=== PATIENT | female | born 1950 | race Caucasian/White ===

== ENCOUNTER 2022-07-25 08:01 | Emergency (ER) | payer MEDICARE, OTHER, SELFPAY ==
--- NOTE | ~2022-07-25 | XR_ITS ---
EXAMINATION: XR LUMBOSACRAL SPINE CLINICAL INFORMATION: Acute low back pain COMPARISON: None available. TECHNIQUE: Three views of the lumbosacral spine. FINDINGS: There is maintained lumbar lordosis the vertebral heights and alignment is normal minimal loss of L5-S1 L2-L3 and L1-L2 disc heights is noted. There is mild ventral spondylosis. No aggressive lytic or sclerotic process. SI joints are normal. XR/XR lumbar spine 2-3V IMPRESSION: Mild degenerative disc changes L1-L2, L2-L3 and L5-S1 disc levels with mild ventral spondylosis.
[2022-07-25 08:09] VITALS: BP 127/57; BP 177/88; PULSE 69; PULSE 74; RESP 20; TEMP 36.9; O2SAT 92; O2SAT 94; BMI 75.9
--- NOTE | 2022-07-25 08:20 | ED.GENADULT ---
HPI - General Adult General Chief complaint: General Medical Stated complaint: R side pain Time Seen by Provider: 07/25/22 08:03 Source: patient and EMS Mode of arrival: EMS Limitations: no limitations History of Present Illness HPI narrative: 71-year-old female with generalized immobility issues, obesity, chronic lymphedema presents with right leg pain. There is no trauma or fall. The pain is severe. The pain is intermittent worse with movement and ambulation. Pain starts in the right buttock and radiates down her leg. The pain can be sharp, burning, crampy in nature. She has chronic bilateral lower extremity paresthesias which is unchanged. She denies any focal weakness. She reports that she needs bilateral knee replacement. She denies any loss of bowel or bladder control. She denies any saddle paresthesias or low back pain. Treatment included Aleve [id number], 750 mg last night. It did help slightly. Related Data Home Medications Medication Instructions Recorded Confirmed atenolol 50 mg tablet 50 mg PO DAILY 07/25/22 07/25/22 celecoxib 200 mg capsule 200 mg PO BID PRN Pain 07/25/22 07/25/22 spironolactone 25 2 tab PO DAILY 07/25/22 07/25/22 mg-hydrochlorothiazide 25 mg tablet Allergies Allergy/AdvReac Type Severity Reaction Status Date / Time No Known Allergies Allergy Verified 07/25/22 08:21 Review of Systems Review of Systems: GEN: Well developed, no acute distress, alert, oriented HEENT: Normocephalic, atraumatic, normal external ears, nose appears normal, no oropharyngeal edema or exudates Eyes: Normal to appearance Neck: Supple, no lymphadenopathy Respiratory: Talks in complete sentences, no respiratory distress, clear to auscultation bilaterally Cardiovascular: Regular rate and rhythm, no murmurs rubs or gallops Abdomen: Soft, nontender, nondistended, no guarding, no rebound Back: No CVA tenderness Extremities: No clubbing cyanosis or chronic 4+ lymphedema, positive straight leg raise on the right Neurologic: No focal neurologic deficits, cranial nerves 2-12 intact, strength is 5/5 bilaterally, sensation intact bilaterally as well as proximal to distal Skin: No rash PMFSH Social History Social History Smoked in Last 30 Days: No Use of substances other than those prescribed or required for medical reasons: No Advance Directives: Yes Advance Directives on File: No Physical Exam ED Vital Signs: Vital Signs - 24 hr 07/25/22 08:09 07/25/22 10:12 07/25/22 15:40 Temperature 98.4 F 98.4 F 98.4 F Pulse Rate 69 59 59 Respiratory Rate 20 18 Blood Pressure 127/57 L 123/75 134/77 Pulse Oximetry 92 96 92 Oxygen Delivery Method Room Air Room Air Room Air BMI result Body Mass Index 75.9 Course Course Course Narrative: 71-year-old female presents with right lower leg pain. Pain started a few days ago. The pain is severe and affecting her ability to ambulate. She denies any falls or trauma. Will order an x-ray to rule out compression fracture although I doubt this diagnosis. Will provide patient with analgesia and re-evaluate patient. Suspect lumbar radiculopathy or neuropathic pain. Reevaluation(s) Reevaluation #1: Patient required full assist to ambulate. Will order Case Management, Physical therapy, some basic labs and a COVID test. Patient is aware of the recommendation for short-term rehabilitation. Time: 11:32 Reevaluation #2: patient placed in physician obs pending CM/PT eval. Oncoming provider to assume care at 4pm Time: 16:00 Medications Administered Discontinued Medications Generic Name Dose Route Start Last Admin Trade Name Beena PRN Reason Stop Dose Admin Acetaminophen 975 mg 07/25/22 08:13 07/25/22 08:41 Acetaminophen 325 Mg Tablet PO 07/25/22 08:14 975 mg ONCE ONE Administration Cyclobenzaprine HCl 10 mg 07/25/22 08:13 07/25/22 08:41 Cyclobenzaprine Hcl 10 Mg Tablet PO 07/25/22 08:14 10 mg ONCE ONE Administration Dexamethasone 10 mg 07/25/22 08:13 07/25/22 08:41 Dexamethasone 2 Mg Tablet PO 07/25/22 08:14 10 mg ONCE ONE Administration Gabapentin 300 mg 07/25/22 08:13 07/25/22 08:42 Gabapentin 300 Mg Capsule PO 07/25/22 08:14 300 mg ONCE ONE Administration Ketorolac Tromethamine 30 mg 07/25/22 08:13 07/25/22 08:40 Ketorolac Tromethamine 30 Mg/Ml Vial IM 07/25/22 08:14 30 mg ONCE ONE Administration Medical Decision Making Medical Decision Making MDM Narrative: 71-year-old female presents with right lower extremity pain. Pain starts in the buttock and radiates distally. This appears to be more radicular in nature. She has no low back pain. Differential diagnosis could include spinal stenosis, disc disease, piriformis syndrome, lumbar radiculopathy. There is no fall or trauma to suspect compression fracture although this would be a possible diagnosis. Will obtain an x-ray of the lumbar spine to rule out compression fracture. There is no indication for emergent laboratory testing. Doubt epidural abscesses she has no risk factors, no fever, no midline tenderness. Doubt acute cauda equina syndrome. She her symptoms are unilateral, no saddle paresthesias, no loss of bowel or bladder control there is no indication for MRI at this time. Will treat patient with Toradol, Tylenol, cyclobenzaprine, Decadron and gabapentin. Will re-evaluate the patient. Differential Diagnosis Differential Diagnoses: The differential diagnosis associated with the presentation includes (See above) Lumbar radiculopathy Admission/Observation Consideration of admission/observation: Escalation of care including admission/observation considered (If patient is unable to ambulate) Lab Data 07/25/22 12:33 07/25/22 12:33 Labs: Lab Results 07/25/22 07/25/22 07/25/22 Range/Units 12:33 12:33 12:33 WBC 10.2 (4.8-10.8) X10*3/uL RBC 4.58 (4.20-5.50) X10*6/uL Hgb 13.3 (12.0-16.0) g/dl Hct 42.1 (37.0-47.0) % MCV 91.9 (80.0-98.0) fL MCH 29.0 (27.0-33.0) pg MCHC 31.6 (31.0-35.0) g/dl RDW 15.0 (11.0-16.0) % Plt Count 228 (160-400) X10*3/uL MPV 9.8 (9.4-12.3) fL Immature Gran % (Auto) 0.5 H (0.0-0.4) % Neut % (Auto) 87.6 H (45-73) % Lymph % (Auto) 9.5 L (20-40) % [place] % (Auto) 1.9 L (2-11) % Eos % (Auto) 0.2 (0-4) % Baso % (Auto) 0.3 (0-2) % Lymph # (Auto) 1.0 L (1.2-4.9) X10*3/uL [place] # (Auto) 0.2 (0.1-1.2) X10*3/uL Eos # (Auto) 0.0 (0.0-0.4) X10*3/uL Baso # (Auto) 0.0 (0.0-0.2) X10*3/uL Abs Immat Gran (auto) 0.05 H (0.00-0.03) X10*3/uL Absolute Neuts (auto) 8.9 H (2.0-8.3) x10*3/uL Absolute Nucleated RBC 0.000 (0.0-0.012) X10*3/uL Nucleated RBC % (auto) 0.0 (0.0-0.2) /100WBC Sodium 141 (135-145) mmol/L Potassium 4.2 (3.3-5.1) mmol/L Chloride 101 (96-108) mmol/L Carbon Dioxide 33 H (22-29) mmol/L Anion Gap 11 L (12-20) BUN 16 (9-16) mg/dL Creatinine 0.80 (0.5-1.4) mg/dL Estim Creat Clear Calc 122.5 Estimated GFR > 60 Random Glucose 125 H (60-115) mg/dL Calcium 9.3 (8.4-10.2) mg/dL Total Bilirubin 0.6 (0.0-1.0) mg/dL AST 13 (5-31) U/L ALT 14 (0-31) U/L Alkaline Phosphatase 100 (39-117) U/L Total Protein 7.6 (6.5-8.0) g/dL Albumin 3.6 (3.5-5.0) g/dL COVID-19 (YUNIER) Negative (Negative) COVID-19 Clin Com See Note Independent Interpretation I performed an independent interpretation of an: Plain X-Ray (L-spine) Radiology Impression Discussion of test interpretation with radiology: I have reviewed the radiologist's reading. ( XR/XR lumbar spine 2-3V IMPRESSION: Mild degenerative disc changes L1-L2, L2-L3 and L5-S1 disc levels with mild ventral spondylosis. Dictated By:Dustin Gunderson MDSigned By:<Electronically signed by Dustin Gunderson MD in [place]>07/25/22 3124) Independent Historian Clinical information obtained from an independent historian. History obtained from or confirmed by: EMS Tests considered The following testing was considered but not selected: CT lumbar spine, MR lumbar spine Prescription Management I considered prescription management with: Pain Medication Chronic Conditions Patient?s care impacted by: Hypertension Discharge Plan Discharge Clinical Impression: Acute lumbar radiculopathy Patient Disposition: Still a Patient Prescriptions: No Action spironolacton-hydrochlorothiaz 25-25 mg tablet 2 tab PO DAILY atenolol 50 mg tablet 50 mg PO DAILY celecoxib 200 mg capsule 200 mg PO BID PRN (Reason: Pain)
--- NOTE | 2022-07-25 08:31 | PC.NURSE ---
pt reports 10/10 nerve pain from r buttock radiates down to right leg, started 1wk ago. hx of same in the past. pt gets around via walker and scooter. lymphedema present bilat foot. on hydrochlorothiazide. no other complaints. at bedside and validates information.
[2022-07-25] MEDS: Ketorolac Tromethamine 30 MG/ML VIAL IM (08:40)
[2022-07-25] MEDS: Cyclobenzaprine HCl 10 MG TABLET PO (08:41)
[2022-07-25] MEDS: Acetaminophen 325 MG TABLET 975 MG PO (08:41)
[2022-07-25] MEDS: dexAMETHasone 2 MG TABLET 10 MG PO (08:41)
[2022-07-25] MEDS: Gabapentin 300 MG CAPSULE PO (08:42)
[2022-07-25 10:12] VITALS: BP 123/75; PULSE 59; RESP 18; TEMP 36.9; O2SAT 96
--- NOTE | 2022-07-25 11:39 | PC.NURSE ---
this rn with assistance of 2 ed techs attempted to ambulate pt with walker. pt able to stand up from bed but was not able to take any steps. difficult getting pt back in bed. at bedside. Dr. Bond aware.
[2022-07-25 12:38] LABS: MANUAL DIFF FLAG NO
[2022-07-25 12:39] LABS: Basophils Percent Auto 0.3 % (0-2); Eosinophils Percent Auto 0.2 % (0-4); Hematocrit 42.1 % (37.0-47.0); Hemoglobin 13.3 g/dl (12.0-16.0); Imm Gran Abs Auto 0.05 X10*3/uL (0.00-0.03); Imm Gran Pct Auto 0.5 % (0.0-0.4); Lymphocytes Percent Auto 9.5 % (20-40); Mean Corpuscular HGB Conc 31.6 g/dl (31.0-35.0); Mean Corpuscular Volume 91.9 fL (80.0-98.0); Mean Platelet Volume 9.8 fL (9.4-12.3); Monocytes Absolute Auto 0.2 X10*3/uL (0.1-1.2); Monocytes Percent Auto 1.9 % (2-11); Neutrophils Absolute Auto 8.9 x10*3/uL (2.0-8.3); Neutrophils Percent Auto 87.6 % (45-73); Platelet Count 228 X10*3/uL (160-400); Red Blood Count 4.58 X10*6/uL (4.20-5.50); White Blood Count 10.2 X10*3/uL (4.8-10.8)
[2022-07-25 12:52] LABS: Alanine Aminotransferase 14 U/L (0-31); Albumin Level 3.6 g/dL (3.5-5.0); Alkaline Phosphatase 100 U/L (39-117); Anion Gap 11 (12-20); Aspartate Amino Transferase 13 U/L (5-31); Bilirubin Total 0.6 mg/dL (0.0-1.0); Blood Urea Nitrogen 16 mg/dL (9-16); COVID-19 Test Negative (Negative); Calcium 9.3 mg/dL (8.4-10.2); Carbon Dioxide 33 mmol/L (22-29); Chloride 101 mmol/L (96-108); Creatinine Clr Calc Pharmacy 122.5; Estimated Glomerular Filt Rate > 60; Glucose Random 125 mg/dL (60-115); IDNOW Serial# BCCEAD1C; Potassium 4.2 mmol/L (3.3-5.1); Sodium 141 mmol/L (135-145); Total Protein 7.6 g/dL (6.5-8.0)
--- NOTE | 2022-07-25 14:43 | PHA.MEDREC ---
Pharmacy Consult ? Medication Reconciliation Pharmacy has completed the medication reconciliation.
--- NOTE | 2022-07-25 14:46 | MHC.CM.ED ---
Received case management consult from Dr Bond. Patient came to the ER due to leg/back pain r/t lymphedema. Physical therapy eval is pending. Anticipate eval will not be completed before tomorrow, Wednesday 07/26. Met with patient and , Aidan, in regards to discharge planning. Patient lives with Aidan, ambulates with a walker and had no services prior to coming to the hospital. PCP verified. Patient has a HCP but not on file here or at PCP's office. Patient has received 4 Covid vaccines. Patient aware she will most likely stay the night in the ER until a PT eval can be completed. senior living and Medicare requirements discussed. Due to lymphedema, patient will benefit from acute rehab. [facility] is 1st choice but patient and Aidan agreeable to referral being broadcasted to all 3 local facilities. Referrals made via [facility]. Continue to monitor for d/c needs.
--- NOTE | 2022-07-25 15:18 | PC.NURSE ---
pt now PT/CM, seen by Nurse Medical Instructor. both pt and at bedside are aware of plan. no complaints.
[2022-07-25 15:40] VITALS: BP 134/77; PULSE 59; TEMP 36.9; O2SAT 92
[2022-07-25] MEDS: atenoloL 50 MG TABLET PO (16:55)
[2022-07-25 19:26] VITALS: BP 128/79; PULSE 75; RESP 14; TEMP 36.9; O2SAT 93
[2022-07-25 23:35] VITALS: BP 136/64; PULSE 64; RESP 22; TEMP 36.9; O2SAT 94
[2022-07-26] MEDS: oxyCODONE HCl Immed Release 5 MG TABLET 10 MG PO ×3 (05:19→20:30)
[2022-07-26 06:32] VITALS: BP 135/45; PULSE 54; RESP 16; O2SAT 93
[2022-07-26 07:17] VITALS: BP 144/81; PULSE 64; RESP 20; TEMP 36.7; O2SAT 95
--- NOTE | 2022-07-26 08:00 | PC.NURSE ---
PT SEEN BY PHYSICAL THERAPY. PT AWARE OF PLAN OF CARE.
[2022-07-26 09:10] VITALS: BP 145/100; PULSE 81; RESP 18; O2SAT 94
[2022-07-26] MEDS: Acetaminophen 325 MG TABLET 650 MG PO (09:12)
[2022-07-26] MEDS: Spironolactone 25 MG TABLET 50 MG PO (09:13)
[2022-07-26] MEDS: hydroCHLOROthiazide 50 MG TABLET PO (09:13)
[2022-07-26] MEDS: atenoloL 50 MG TABLET PO (09:13)
--- NOTE | 2022-07-26 09:41 | PC.NURSE ---
got patient up to a commode, clean up patient, applied lotion & powder, and put on a new percy
--- NOTE | 2022-07-26 10:57 | MHC.CM.ED ---
Addendum entered by Cinthia Lagos 07/26/22 13:07: Pt will need to pay for STR at [facility]: close to $500 per day. Met w/pt and her spouse extensively to discuss options for placement. Pt does not have a Medicare qualifying stay but does have a secondary HNE policy. Will extend STR referrals. Pt has been declined by all 3 acute rehab centers. Pt continues to have pain with movement and cannot ambulate. Spouse feels she isn't safe at home d/t immobility, pain and need for extensive physical assist. Pt does not meet INPT admission criteria based on supportive clinical data: VS, labs, imaging, documentation. Discussed private pay options to which pt and spouse declined. Will await findings of broad referrals and potential for [facility] to assist w/STR cost. ED CM to follow. Original Note: Reieved call from Keyanna at [facility]: pt is part of their community and they may be able to offer a STR bed at [facility]. Referral placed: insurance to be verified: Keyanna states she will call back with updates/information
[2022-07-26 14:46] VITALS: BP 113/79; PULSE 66; RESP 22; TEMP 36.7; O2SAT 93
--- NOTE | 2022-07-26 18:43 | MHC.CM.ED ---
CM met with patient. Patient aware that acute rehabs have declined patient. Aware that she will need to pay, 1 month up front for R&B for STR, Refuses [facility] in [place] and [facility]. [facility] ($483/day), [facility] ($460/day) and [facility] ($490/day) have offered. Spoke with pt and on speaker phone. Pt states they have funds. Pt and aware that CM will need to respond tomorrow to offers, or else they will offer to another patient. wants to contact facilities and visit them first. CM contact information given. will call between 10-11am with decision for placement. Pt and are aware that no other facilities have offered a bed. CM following for discharge planning.
--- NOTE | 2022-07-26 19:08 | MHC.EDTECH ---
Patient is alert and oriented to baseline will continue to monitor ED rounds are done
--- NOTE | 2022-07-26 21:09 | PC.NURSE ---
Pt repositioned in bed. Pt chux and linens changed. Purewick reapplied and suction canister checked to ensure functionality. Pt denies any other needs at this time.
[2022-07-26 22:00] VITALS: BP 138/70; PULSE 64; RESP 20; TEMP 36.6; O2SAT 98
--- NOTE | 2022-07-27 02:14 | PC.NURSE ---
Pt requesting something for pain. [place] text sent to provider at this time.
[2022-07-27] MEDS: oxyCODONE HCl Immed Release 5 MG TABLET PO ×2 (02:50→08:47)
--- NOTE | 2022-07-27 02:50 | PC.NURSE ---
Pt medicated per MAR for pain.
[2022-07-27 05:41] VITALS: BP 131/73; PULSE 66; RESP 17; TEMP 36.4; O2SAT 94
--- NOTE | 2022-07-27 06:45 | PC.NURSE ---
Pt requesting to sit on edge of bed. Pt assisted to sit on edge of bed per this RN and ELIA Alvarez.
--- NOTE | 2022-07-27 06:48 | PC.NURSE ---
Pt found on floor beside bed. States she decided to get up and sit in the chair next to her bed but just didnt make it. Security and additional ED staff to bedside to assist pt back to bed without incident. Pt denies any additional injuries or headstrike.
--- NOTE | 2022-07-27 07:15 | PC.NURSE ---
Provider Verdugo over to see pt. Pt with no injuries. Denies need for imaging.
[2022-07-27] MEDS: atenoloL 50 MG TABLET PO (08:47)
[2022-07-27] MEDS: Spironolactone 25 MG TABLET 50 MG PO (08:47)
[2022-07-27] MEDS: hydroCHLOROthiazide 50 MG TABLET PO (08:48)
--- NOTE | 2022-07-27 08:55 | PC.NURSE ---
pt is a/o x4 no sob/mahesh noted speaks in full sentences. pt is c/o r post thigh pain greater than 10/10. med x 1 with oxycodone 5mg po. pt aware of plan of care.
--- NOTE | 2022-07-27 09:53 | MHC.CM.ED ---
Addendum entered by Susana Alaniz 07/27/22 12:37: Received telephone call from patient's , Aidan. Patient will go to [facility]. Per Keyanna liaison at [facility], they are in the process of obtaining bariatric equipment. Will provide CM with a time that equipment will be delivered to their facility. Original Note: Patient remains in ER overflow. Received telephone call from patient's , Aidan. He wants to tour [place] and [facility] before making a decision. Tours have already been arranged. Continue to monitor for d/c needs.
[2022-07-27] MEDS: oxyCODONE HCl Immed Release 5 MG TABLET 10 MG PO (10:26)
[2022-07-27 11:10] VITALS: BP 140/66; PULSE 68; RESP 19; TEMP 37.5; O2SAT 92
[2022-07-27] MEDS: Cyclobenzaprine HCl 10 MG TABLET PO (11:22)
[2022-07-27 13:18] VITALS: O2SAT 94
[2022-07-27 13:29] VITALS: BP 119/73; PULSE 76; RESP 18; TEMP 37.1; O2SAT 94
--- NOTE | 2022-07-27 14:45 | MHC.EDTECH ---
changed patient, placed new purewick. patient changed into her own clothes prior to being washed up.
--- NOTE | 2022-07-27 17:45 | PC.NURSE ---
[facility] arrived had a manual stretcher unable to take her with that stretcher. Another crew called to pick her up with the power stretcher. aware.
== END 2022-07-27 18:45 ==
PROVIDERS: Emergency Provider Emergency Medicine; PCP Family Medicine
DX: M54.16 Radiculopathy, lumbar region (principal); M54.50 Low back pain, unspecified; R20.2 Paresthesia of skin; R26.2 Difficulty in walking, not elsewhere classified; Z20.822 Contact with and (suspected) exposure to COVID-19; Z20.828 Contact with and (suspected) exposure to other viral communicable diseases; Z79.899 Other long term (current) drug therapy
CPT/HCPCS: 72100; 80053; 85025; 87635; 96372; 97162; 97530; 99284; 99285; J1885; J8540

== ENCOUNTER 2022-11-11 10:59 | Emergency (ER) | payer MEDICARE, OTHER, SELFPAY ==
--- NOTE | ~2022-11-11 | US_ITS ---
EXAMINATION: US VENOUS ULTRASOUND WITH DOPPLER LOWER EXTREMITY, BILATERAL CLINICAL INFORMATION: Bilateral lower extremity edema, erythema COMPARISON: None available. TECHNIQUE: Ultrasound of the deep veins is performed from the hip to the calf with compression sonography and color and pulse Doppler assessment. Spectral analysis with color-flow imaging is performed. FINDINGS: RIGHT: There is normal venous compression and respiratory variation and augmented flow. The visualized common femoral vein, superficial femoral vein, profunda femoral vein, popliteal vein, and the trifurcation region shows no evidence of deep venous thrombosis. There appears to be a small Darling's cyst in the popliteal fossa measuring 2.6 x 4.2 x 2.1 cm. LEFT: There is normal venous compression and respiratory variation and augmented flow. The visualized common femoral vein, superficial femoral vein, profunda femoral vein, popliteal vein, and the trifurcation region shows no evidence of deep venous thrombosis. There is no significant popliteal fossa cyst. If the patient's symptoms persist, followup ultrasound in 5 days 7 days might be of value to exclude proximal propagation from a non-visualized calf vein. US/US venous duplex LE BI IMPRESSION: No DVT demonstrated in the bilateral lower extremity. Darling's cyst in the right popliteal fossa
[2022-11-11 11:08] VITALS: BP 140/72; BP 142/80; PULSE 83; PULSE 85; RESP 20; O2SAT 94; BMI 76.3
--- NOTE | 2022-11-11 11:45 | ED.GENADULT ---
HPI - General Adult General Chief complaint: Wound/Laceration Stated complaint: ?SEPSIS PER EMS Time Seen by Provider: 11/11/22 11:17 Source: patient, EMS, RN notes reviewed and old records reviewed Mode of arrival: EMS History of Present Illness HPI narrative: 72-year-old female with a past medical history of superficial thrombophlebitis, HTN, lymphedema, degenerative arthritis, morbid obesity, presenting to the ED via EMS from [facility] due to PCP concern about left lower extremity wound leading to severe infection/ sepsis. Patient reports erythematous/weeping wound x4-5 weeks. Denies fever/chills, injury, SOB, worsening edema/ lymphedema. Onset (ago): week(s) Related Data Home Medications Medication Instructions Recorded Confirmed atenolol 50 mg tablet 50 mg PO DAILY 07/25/22 07/25/22 celecoxib 200 mg capsule 200 mg PO BID PRN Pain 07/25/22 07/25/22 spironolactone 25 2 tab PO DAILY 07/25/22 07/25/22 mg-hydrochlorothiazide 25 mg tablet Previous Rx's Medication Instructions Recorded oxycodone 5 mg tablet 5 mg PO Q6H PRN pain 2 days #10 07/27/22 tabs cephalexin 500 mg capsule 500 mg PO QID 7 days #28 caps 11/11/22 doxycycline hyclate 100 mg tablet 100 mg PO BID 7 days #14 tabs 11/11/22 Allergies Allergy/AdvReac Type Severity Reaction Status Date / Time No Known Allergies Allergy Verified 07/25/22 08:21 Review of Systems Review of Systems: Constitutional: No Fever, No Chills ENT/Mouth: No Nasal Congestion, No sore throat, No Rhinorrhea, No Swallowing Difficulty Cardiovascular: No Chest Pain, No SOB, +chronic LE edema Respiratory: No Cough, No Sputum, No Wheezing Gastrointestinal: No Nausea, No Vomiting, No Diarrhea, No Constipation, No Abdominal pain Musculoskeletal: No joint pain, No Myalgias, No Joint Swelling Skin: + Skin Lesions, No rash Neuro: No Weakness, No Numbness, No Paresthesias Yes all other systems are reviewed and are negative Constitutional: Constitutional: Reports as per [facility] Past Medical History Attestation statement: The following information was validated with the patient. Source: old records reviewed Social History Social History Advance Directives: No Physical Exam ED Vital Signs: Vital Signs - 24 hr 11/11/22 11:08 11/11/22 13:28 Temperature 98.1 F Pulse Rate 83 76 Respiratory Rate 20 15 Blood Pressure 142/80 H 145/76 H Pulse Oximetry 94 97 Oxygen Delivery Method Room Air Room Air BMI result Body Mass Index 76.3 Const General: cooperative, healthy appearing and no acute distress Nutritional Appearance: obese morbidly obese Orientation/consciousness: patient oriented x3 Limitations: no limitations HENMT Head: Yes normal to inspection and Yes atraumatic Ears: hearing grossly normal bilaterally General nose exam: Normal external nose present Face and sinus: Yes normal facial exam Eyes General: appearance normal, both eyes and all related structures EOM: EOMs intact bilaterally Neck Neck: Yes normal visual inspection and Yes no meningeal signs Resp Effort & Inspection: normal respiratory effort and no respiratory distress Auscultation: clear to auscultation bilaterally and no wheezes Cardio Rate: regular rate Heart sounds: S1 normal heart sound present and S2 normal heart sound present GI Inspection: Yes normal to inspection Palpation (GI): Soft to palpation, nontender, no guarding and not rigid Skin Rashes: no rashes Neuro General: patient oriented x3, tone normal and no meningeal signs Cranial nerves: Yes CN's II-XII intact bilaterally Gait exam (Neuro): Normal gait present Extrem Other: patient refer to images above. Chronic bilateral lymphedema noted. Bilateral upper medial thighs with acute on chronic superficial thrombophlebitis with erythema and chronic appearing wounds. No warmth. RLE healing wound as depicted in 3rd picture. LLE open weeping wound with surrounding erythema. Mildly tender. No fluctuance/ induration or pus drainage. No malodor Course Course Course Narrative: - no leukocytosis. Labs otherwise reassuring US venous duplex LE BI IMPRESSION: No DVT demonstrated in the bilateral lower extremity. Darling's cyst in the right popliteal fossa > Results discussed with patient including worrisome signs and symptoms and strict return precautions, and when to return to the emergency department. They verbalized understanding and feel safe for discharge at this time. Medications Administered Discontinued Medications Generic Name Dose Route Start Last Admin Trade Name Freq PRN Reason Stop Dose Admin Cephalexin HCl 500 mg 11/11/22 15:05 11/11/22 15:29 Cephalexin 500 Mg Capsule PO 11/11/22 15:06 500 mg ONCE ONE Administration Doxycycline Monohydrate 100 mg 11/11/22 15:05 11/11/22 15:29 Doxycycline Monohydrate 100 Mg Capsule PO 11/11/22 15:06 100 mg ONCE ONE Administration Medical Decision Making Medical Decision Making [facility] Narrative: 72-year-old female with a past medical history of superficial thrombophlebitis, HTN, lymphedema, degenerative arthritis, morbid obesity, presenting to the ED via EMS from [facility] due to PCP concern about left lower extremity wound leading to severe infection/ sepsis. On exam vital signs stable, NAD, nontoxic appearing, physical exam as above. Please refer to images. Concern for acute on chronic wounds with acute cellulitis to left lower extremity. Low suspicion for sepsis, DVT, necrotizing fasciitis or septic joint plan: Labs including lactic/blood cultures, venous duplex ultrasound Please refer to course for remaining clinical decision making, interpretation of labs/imaging results, and discussions with consultants and/or family members. Differential Diagnosis Differential Diagnoses: The differential diagnosis associated with the presentation includes As above Admission/Observation Consideration of admission/observation: Escalation of care including admission/observation considered Lab Data [facility] Lab Attestation statement: I reviewed the patient's lab results. 11/11/22 12:28 11/11/22 12:28 Labs: Lab Results 11/11/22 Range/Units 12:28 WBC 9.6 (4.8-10.8) X10*3/uL RBC 4.52 (4.20-5.50) X10*6/uL Hgb 13.6 (12.0-16.0) g/dl Hct 42.1 (37.0-47.0) % MCV 93.1 (80.0-98.0) fL MCH 30.1 (27.0-33.0) pg MCHC 32.3 (31.0-35.0) g/dl RDW 15.4 (11.0-16.0) % Plt Count 266 (160-400) X10*3/uL MPV 9.9 (9.4-12.3) fL Immature Gran % (Auto) 0.4 (0.0-0.4) % Neut % (Auto) 78.9 H (45-73) % Lymph % (Auto) 12.6 L (20-40) % [place] % (Auto) 6.8 (2-11) % Eos % (Auto) 0.7 (0-4) % Baso % (Auto) 0.6 (0-2) % Lymph # (Auto) 1.2 (1.2-4.9) X10*3/uL [place] # (Auto) 0.7 (0.1-1.2) X10*3/uL Eos # (Auto) 0.1 (0.0-0.4) X10*3/uL Baso # (Auto) 0.1 (0.0-0.2) X10*3/uL Abs Immat Gran (auto) 0.04 H (0.00-0.03) X10*3/uL Absolute Neuts (auto) 7.6 (2.0-8.3) x10*3/uL Absolute Nucleated RBC 0.000 (0.0-0.012) X10*3/uL Nucleated RBC % (auto) 0.0 (0.0-0.2) /100WBC PT 12.0 (11.1-13.3) SEC INR 1.0 (0.9-1.1) Sodium 141 (135-145) mmol/L Potassium 3.5 (3.3-5.1) mmol/L Chloride 98 (96-108) mmol/L Carbon Dioxide 35 H (22-29) mmol/L Anion Gap 12 (12-20) BUN 16 (9-16) mg/dL Creatinine 0.79 (0.5-1.4) mg/dL Estim Creat Clear Calc 122.7 Estimated GFR > 60 Random Glucose 111 (60-115) mg/dL Lactic Acid 1.2 (0.5-2.0) mmol/L Calcium 9.8 (8.4-10.2) mg/dL Total Bilirubin 0.4 (0.0-1.0) mg/dL Direct Bilirubin 0.2 (0.0-0.5) mg/dL AST 13 (5-31) U/L ALT 12 (0-31) U/L Alkaline Phosphatase 103 (39-117) U/L B-Natriuretic Peptide 29 (<100) pg/mL Total Protein 8.0 (6.5-8.0) g/dL Albumin 3.8 (3.5-5.0) g/dL Radiology Impression Discussion of test interpretation with radiology: I have reviewed the radiologist's reading. Independent Historian Clinical information obtained from an independent historian. History obtained from or confirmed by: EMS External Record Review External record reviewed: Inpatient record, Office record, Outpatient record, Prior outpatient labs, Prior outpatient radiology, Primary care record and Outside ED record Tests considered The following testing was considered but not selected: As above Prescription Management I considered prescription management with: Pain Medication Chronic Conditions Patient?s care impacted by: Other ( obesity, lymphangitis) Social Determinants Patient?s care significantly limited by Social Determinants of Health including: Problems related to primary support group Discharge Plan Discharge Clinical Impression: Cellulitis Patient Disposition: Home, Self-Care Instructions: Cellulitis (DC) Additional Instructions: your blood work is reassuring Keflex and doxycycline are antibiotics please take as prescribed keep a close eye on the area as Wear compression stockings Elevate her legs If redness spreads or worsens you have fever, purulent drainage return to the ED Prescriptions: New cephalexin 500 mg capsule 500 mg PO QID 7 Days Qty: 28 0RF doxycycline hyclate 100 mg tablet 100 mg PO BID 7 Days Qty: 14 0RF No Action spironolacton-hydrochlorothiaz 25-25 mg tablet 2 tab PO DAILY atenolol 50 mg tablet 50 mg PO DAILY celecoxib 200 mg capsule 200 mg PO BID PRN (Reason: Pain) oxycodone 5 mg tablet 5 mg PO Q6H PRN (Reason: pain) 2 Days Qty: 10 0RF Rx Instructions: Partial Fill upon patient request. Referrals: Yandy Zavala MD [Primary Care Provider] - 3 days
--- OUTSIDE RECORDS SUMMARY | 2022-11-11 11:49 | XMS_ITS | Continuity of Care Document ---
Author Name Unknown Organization [facility] Address [address] [place] [address]- Care Team Providers Care Finishing Tunnel Operator Name Role Phone Yandy Zavala MD Primary Care Physician Encounter [facility] Date(s): 09/23/22 - 10/23/22 [facility] [address] [place] [id number]- Allergies, Adverse Reactions, Alerts No Known Medication Allergies Medications Atenolol By Mouth, Daily, 0 Refills, Maintenance, 01/06/17 11:19:05 Start Date: 01/06/17 Status: Ordered Hydrochlorothiazide By Mouth, Daily, 0 Refills, Maintenance, 01/06/17 11:19:17 Start Date: 01/06/17 Status: Ordered Patient Care team information Care Team Personnel Name: Yandy Zavala MD Position: Reference Physician Member Role: PCP Address: Address: [address] [place] [id number]- Care Team Related Persons Name: QUE GREEN Address: home [address] [place] [address]
--- NOTE | 2022-11-11 12:20 | PC.NURSE ---
pt arrived via ems; per pt pcp advised to come in d/t wounds BLE; concern of sepsis. afebrile. vss. nsr on monitor 78 bpm. Rebecca CHEUNG to bedside for assessment; took pictures to upload to chart. +3 pitting edema BLE; +pulses. iv established. 1st set of blood cultures obtained. call davidson within reach.
[2022-11-11 12:37] LABS: MANUAL DIFF FLAG NO
[2022-11-11 12:40] LABS: Basophils Absolute Auto 0.1 X10*3/uL (0.0-0.2); Basophils Percent Auto 0.6 % (0-2); Eosinophils Absolute Auto 0.1 X10*3/uL (0.0-0.4); Eosinophils Percent Auto 0.7 % (0-4); Hematocrit 42.1 % (37.0-47.0); Hemoglobin 13.6 g/dl (12.0-16.0); Imm Gran Abs Auto 0.04 X10*3/uL (0.00-0.03); Imm Gran Pct Auto 0.4 % (0.0-0.4); Lymphocytes Absolute Auto 1.2 X10*3/uL (1.2-4.9); Lymphocytes Percent Auto 12.6 % (20-40); Mean Corpuscular HGB Conc 32.3 g/dl (31.0-35.0); Mean Corpuscular Hemoglobin 30.1 pg (27.0-33.0); Mean Corpuscular Volume 93.1 fL (80.0-98.0); Mean Platelet Volume 9.9 fL (9.4-12.3); Monocytes Absolute Auto 0.7 X10*3/uL (0.1-1.2); Monocytes Percent Auto 6.8 % (2-11); Neutrophils Absolute Auto 7.6 x10*3/uL (2.0-8.3); Neutrophils Percent Auto 78.9 % (45-73); Platelet Count 266 X10*3/uL (160-400); Red Blood Count 4.52 X10*6/uL (4.20-5.50); Red Cell Distribution Width 15.4 % (11.0-16.0); White Blood Count 9.6 X10*3/uL (4.8-10.8)
[2022-11-11 12:54] LABS: Lactic Acid 1.2 mmol/L (0.5-2.0)
[2022-11-11 12:59] LABS: Alanine Aminotransferase 12 U/L (0-31); Albumin Level 3.8 g/dL (3.5-5.0); Alkaline Phosphatase 103 U/L (39-117); Anion Gap 12 (12-20); Aspartate Amino Transferase 13 U/L (5-31); Bilirubin Direct 0.2 mg/dL (0.0-0.5); Bilirubin Total 0.4 mg/dL (0.0-1.0); Blood Urea Nitrogen 16 mg/dL (9-16); Calcium 9.8 mg/dL (8.4-10.2); Carbon Dioxide 35 mmol/L (22-29); Chloride 98 mmol/L (96-108); Creatinine Clr Calc Pharmacy 122.7; Estimated Glomerular Filt Rate > 60; Glucose Random 111 mg/dL (60-115); Potassium 3.5 mmol/L (3.3-5.1); Sodium 141 mmol/L (135-145)
[2022-11-11 13:01] LABS: B Type Natriuretic Peptide 29 pg/mL (<100)
[2022-11-11 13:28] VITALS: BP 145/76; PULSE 76; RESP 15; TEMP 36.7; O2SAT 97
[2022-11-11] MEDS: Doxycycline Monohydrate 100 MG CAPSULE PO (15:29)
[2022-11-11] MEDS: cephALEXin 500 MG CAPSULE PO (15:29)
--- NOTE | 2022-11-11 15:37 | PC.NURSE ---
ambulance booked for pt to return home; dressing applied to wound on L. lower leg per Rebecca CHEUNG request. IV removed. pt medicated per apr. awaiting ambulance.
== END 2022-11-11 18:09 | disposition home or self-care (01) ==
PROVIDERS: Physician Assistant; Emergency Provider Emergency Medicine Emergency Medical Services; PCP Family Medicine
DX: L03.116 Cellulitis of left lower limb (principal); L03.115 Cellulitis of right lower limb; M71.21 Synovial cyst of popliteal space [Baker], right knee; R60.0 Localized edema; I10 Essential (primary) hypertension; E66.01 Morbid (severe) obesity due to excess calories; Z68.45 Body mass index [BMI] 70 or greater, adult
CPT/HCPCS: 36415; 80048; 80076; 83605; 83880; 85025; 85610; 87040; 93970; 99283; 99284

== ENCOUNTER 2024-02-06 13:30 | Outpatient (REF) | payer MEDICARE, OTHER, SELFPAY ==
[2024-02-06 13:44] LABS: Hematocrit 45.4 % (37.0-47.0); Hemoglobin 15.1 g/dl (12.0-16.0); Mean Corpuscular HGB Conc 33.3 g/dl (31.0-35.0); Mean Corpuscular Hemoglobin 29.8 pg (27.0-33.0); Mean Corpuscular Volume 89.7 fL (80.0-98.0); Platelet Count 270 X10*3/uL (160-400); Red Blood Count 5.06 X10*6/uL (4.20-5.50); Red Cell Distribution Width 13.9 % (11.0-16.0); White Blood Count 8.9 X10*3/uL (4.8-10.8)
[2024-02-06 14:25] LABS: Thyroid Stimulating Hormone 1.14 uIU/mL (0.32-4.0)
[2024-02-06 14:30] LABS: Estimated Average Glucose 100 mg/dL; Hemoglobin A1C 122.2998 umol/L; Hemoglobin A1c % 5.1 % (<6.0); Total Hemoglobin (HGBA1C) 3766.6695 umol/L
[2024-02-06 14:40] LABS: Folate 5.4 ng/mL (> or = 4.0); Vitamin B12 250 pg/mL (200-900)
--- OUTSIDE RECORDS SUMMARY | 2024-02-07 21:41 | XMS_ITS | Clinical Summary ---
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, LUMBOSACR REGION Active 08-02 00:00: 00 BILATERAL PRIMARY OSTEOARTHRIT IS OF KNEE Active 08-02 00:00: 00 LYMPHEDEMA, NOT ELSEWHERE CLASSIFIED Active 07-25 00:00: 00 ESSENTIAL (PRIMARY) HYPERTENSION Active 07-27 00:00: 00 MORBID (SEVERE) OBESITY DUE TO EXCESS CALORIES Active 07-25 00:00: 00 Allergies, Adverse Reactions, Alerts Allergy Name Allergy Type Status Severity Reaction(s) Onset Date Inactive Date Treating Clinician Comments NO KNOWN ALLERGIES Propensity to adverse reactions Active 08-04 05:54: 35 Medications Ordered Medication Name Filled Medication Name Start Date Stop Date Current Medication? Ordering Clinician Indication Dosage Frequency Signature (SIG) Comments Components atenolol 50 mg tablet 07-12 00:00: 00 Yes [id number] HTN Per instruc tions EVERY DAY Per instructio ns EVERY DAY (route: oral) Med Classific ation: Cardiovas cular Therapy Agents spironolact one 25 mg-hydrochl orothiazide 25 mg tablet 07-12 00:00: 00 Yes [id number] HTN Per instruc tions DAILY Per instructio ns DAILY (route: oral) Med Classific ation: Cardiovas cular Therapy Agents acetaminoph en 325 mg tablet 08-02 00:00: 00 Yes [id number] pain 2 tablet EVERY 8 HOURS 2 tablet EVERY 8 HOURS (route: oral) Med Classific ation: Analgesic , Anti-infl ammatory or Antipyret ic meloxicam 7.5 mg tablet 09-01 00:00: 00 Yes [id number] ANTI INFLAMMATOR Y Per instruc tions DAILY Per instructio ns DAILY (route: oral) Med Classific ation: Analgesic , Anti-infl ammatory or Antipyret ic Vital Signs Vital Name Observation Time Observation Value Commen ts Temperature 2022-09-26 11:08:00.000 97.8 [degF] Temperature 2022-09-20 08:48:00.000 97.2 [degF] Temperature 2022-09-05 09:40:00.000 97.1 [degF] Temperature 2022-09-02 13:07:00.000 97.8 [degF] Temperature 2022-09-01 12:55:00.000 97.8 [degF] Temperature 2022-08-25 14:25:00.000 97.7 [degF] Temperature 2022-08-23 08:40:00.000 97.1 [degF] Temperature 2022-08-16 08:51:00.000 98.2 [degF] Temperature 2022-08-08 16:53:00.000 98 [degF] Temperature 2022-08-02 14:57:00.000 97 [degF] BMI (%) 2022-08-02 14:57:00.000 75 kg/m2 Height 2022-08-02 14:57:00.000 65 [in_us] Pulse 2022-09-26 11:08:00.000 68 /min Pulse 2022-09-20 08:48:00.000 76 /min Pulse 2022-09-05 09:40:00.000 78 /min Pulse 2022-09-02 13:07:00.000 78 /min Pulse 2022-09-01 12:55:00.000 68 /min Pulse 2022-08-25 14:25:00.000 83 /min Pulse 2022-08-23 08:40:00.000 76 /min Pulse 2022-08-16 08:51:00.000 76 /min Pulse 2022-08-08 16:53:00.000 90 /min Pulse 2022-08-02 14:57:00.000 90 /min O2 Saturation (%) 2022-09-02 13:07:00.000 98 % O2 Saturation (%) 2022-08-25 14:25:00.000 93 % O2 Saturation (%) 2022-08-02 14:57:00.000 92 % Respirations 2022-09-26 11:08:00.000 18 /min Respirations 2022-09-20 08:48:00.000 18 /min Respirations 2022-09-05 09:40:00.000 18 /min Respirations 2022-09-02 13:07:00.000 18 /min Respirations 2022-09-01 12:55:00.000 18 /min Respirations 2022-08-25 14:25:00.000 18 /min Respirations 2022-08-23 08:40:00.000 18 /min Respirations 2022-08-16 08:51:00.000 18 /min Respirations 2022-08-08 16:53:00.000 18 /min Respirations 2022-08-02 14:57:00.000 18 /min Weight (lbs) 2022-08-02 14:57:00.000 456 [lb_av] Systolic Blood Pressure 2022-09-26 11:08:00.000 128 mm [Hg] Systolic Blood Pressure 2022-09-20 08:48:00.000 118 mm [Hg] Systolic Blood Pressure 2022-09-05 09:40:00.000 120 mm [Hg] Systolic Blood Pressure 2022-09-02 13:07:00.000 122 mm [Hg] Systolic Blood Pressure 2022-09-01 12:55:00.000 122 mm [Hg] Systolic Blood Pressure 2022-08-25 14:25:00.000 110 mm [Hg] Systolic Blood Pressure 2022-08-23 08:40:00.000 122 mm [Hg] Systolic Blood Pressure 2022-08-16 08:51:00.000 122 mm [Hg] Systolic Blood Pressure 2022-08-08 16:53:00.000 148 mm [Hg] Systolic Blood Pressure 2022-08-02 14:57:00.000 144 mm [Hg] Diastolic Blood Pressure 2022-09-26 11:08:00.000 60 mm [Hg] Diastolic Blood Pressure 2022-09-20 08:48:00.000 62 mm [Hg] Diastolic Blood Pressure 2022-09-05 09:40:00.000 70 mm [Hg] Diastolic Blood Pressure 2022-09-02 13:07:00.000 78 mm [Hg] Diastolic Blood Pressure 2022-09-01 12:55:00.000 66 mm [Hg] Diastolic Blood Pressure 2022-08-25 14:25:00.000 68 mm [Hg] Diastolic Blood Pressure 2022-08-23 08:40:00.000 70 mm [Hg] Diastolic Blood Pressure 2022-08-16 08:51:00.000 70 mm [Hg] Diastolic Blood Pressure 2022-08-08 16:53:00.000 80 mm [Hg] Diastolic Blood Pressure 2022-08-02 14:57:00.000 84 mm [Hg] Plan of Treatment Planned Activity Planned Date Details Comments Future Scheduled Test 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 NOTIFY MD IF 02SATS BELOW 90% AFTER 10 MIN OF REST. [code = OXYGEN SATURATION (PT). NOTIFY MD IF 02SATS BELOW 90% AFTER 10 MIN OF REST.] Future Scheduled Test PAIN MANAG EMENT (PT) [code = PAIN MANAGEMENT (PT) ] Future Scheduled Test AGENCY MAY PERFORM A RESUMPTION OF CARE VISIT FOLLOWING ANY HOSPITAL ADMISSION. PHYSICAL THERAPY TO EVALUATE, ASSESS AND MONITOR, PROVIDE SKILLED THERAPEUTIC INTERVENTION, ACTIVITY, EDUCATION, AND TRAINING TO ADDRESS: [code = AGENCY MAY PERFORM A RESUMPTION OF CARE VISIT FOLLOWING ANY HOSPITAL ADMISSION. PHYSICAL THERAPY TO EVALUATE, ASSESS AND MONITOR, PROVIDE SKILLED THERAPEUTIC INTERVENTION, ACTIVITY, EDUCATION, AND TRAINING TO ADDRESS:] Future Scheduled Test TRANSFER T RAINING (PT) [code = TRANSFER TRAINING (PT)] Future Scheduled Test GAIT TRAIN ING (PT) [code = GAIT TRAINING (PT)] Future Scheduled Test THERAPEUTI C EXERCISES (PT) [code = THERAPEUTIC EXERCISES (PT)] Future Scheduled Test IDENTIFY F ALL RISK FACTORS AND ESTABLISH HOME EXERCISE PROGRAM TO MINIMIZE FALL RISK. MAY TEACH THE PATIENT FLOOR RECOVERY WHEN CLINICALLY APPROPRIATE (PT) [code = IDENTIFY FALL RISK FACTORS AND ESTABLISH HOME EXERCISE PROGRAM TO MINIMIZE FALL RISK. MAY TEACH THE PATIENT FLOOR RECOVERY WHEN CLINICALLY APPROPRIATE (PT)] Future Scheduled Test CAR TRANSF ER TRAINING - PT [code = CAR TRANSFER TRAINING - PT] Goal 2022-09-26 Patient Goal - MOVE BETTER Goal Provider Goal - Goal Provider Goal - PATIENT WILL MAINTAIN OXYGEN SATURATION WITHIN PHYSICIAN ORDERED PARAMETERS THROUGHOUT EPISODE OF CARE Goal Provider Goal - PT GOAL: PATIENT/CAREGIVER WILL VERBALIZE UNDERSTANDING OF PAIN MANAGEMENT BY END OF EPISODE. Goal Provider Goal - Goal Provider Goal - PT STG: PATIENT WILL DEMONSTRATE INDEPENDENCE WITH SIT TO AND FROM SUPINE TRANSFERS USING MECHANICAL BED FEATURES WITHIN 4 WEEKS PT STG: PATIENT WILL DEMONSTRATE IMPROVED TRANSFERS FROM CGA TO INDEPENDENT WITH UE ASSIST AND USE OF LIFT FEATURE ON RECLINER WITHIN 4 WEEKS Goal Provider Goal - PT STG: PATIENT WILL DEMONSTRATE IMPROVED POSTURE AND POSITIONING WITHIN ROLLATOR BASE, IMPROVED STEP LENGTH AND CONSISTENT FOOT CLEARANCE BILATERALLY TO IMPROVE GAIT PATTERN WITHIN 4 WEEKS PT LTG: PATIENT WILL DEMONSTRATE IMPROVED AMBULATION FROM MIN ASSIST TO INDEPENDENT WITH ROLLATOR WITHIN 9 WEEKS PT LTG: PATIENT WILL DEMONSTRATE REDUCED FALL RISK EVIDENCED BY IMPROVED SELF- SELECTED WALKING SPEED (SSWS CUT SCORE 0.6 TO 0.9 INDICATES MODERATE FALL RISK, 0.6 M/S INDICATES HIGH FALL RISK) FROM 0.5M/SEC TO 0.8M/SEC WITHIN 9 WEEKS Goal Provider Goal - PT STG: PATIENT WILL DEMONSTRATE INDEPENDENCE WITH LOWER EXTREMITY HOME EXERCISE PROGRAM WITHIN 4 WEEKS PT LTG: PATIENT WILL DEMONSTRATE INCREASED STRENGTH OF BILATERAL LES FROM 3/5 TO 4/5 WITHIN 9 WEEKS IN ORDER TO IMPROVE SAFETY AND STABILITY WITH GAIT AND STANDING ACTIVITIES Goal Provider Goal - PATIENT/CAREGIVER WILL DEMONSTRATE ADHERENCE TO FALL REDUCTION SELF MANAGEMENT TO MINIMIZE FALL BY END OF EPISODE. Goal Provider Goal - PT STG: PATIENT WILL BE ABLE TO PARTICIPATE IN CAR TRANSFERS TO ATTEND FOLLOW-UP MD APPOINTMENT WITH SUPERVISION BY 08/17/22. Reason for Visit INDEPENDENT IN THE HOME Encounters Start Date/Time End Date/Time Encounter Type Admission Type Attending [facility] Facility Care Department Encounter ID Discharge Date Discharge Status Discharge Condition Discharge Reason Percent Goals Met 2022-08-02 00:00:00 2022-09-26 00:00:00 Outpatient NEW ADMISSION STACEY TAYLOR [facility] [id number] 2022-09-26 00:00:00 DISCHARGE TO HOME OR SELF CARE INDEPENDEN T IN THE HOME HH OR PAL- GOALS MET 100.00
== END 2024-02-06 13:31 | disposition home or self-care (01) ==
LOC: HO.LNP 13:30
PROVIDERS: Visit Provider Family Medicine
DX: I73.9 Peripheral vascular disease, unspecified (principal); I10 Essential (primary) hypertension; M19.90 Unspecified osteoarthritis, unspecified site; Z13.1 Encounter for screening for diabetes mellitus
CPT/HCPCS: 82607; 82746; 83036; 84443; 85027